=== PATIENT | male | born 1985 | race Caucasian/White ===

== ENCOUNTER 2021-06-12 20:48 | Emergency (ER) | payer OTHER ==
[~2021-06-12] VITALS: Ht 182.9 cm; Wt 74.8 kg
--- NOTE | 2021-06-12 21:03 | NUR ---
PT CALLED FOR TRIAGE, NOT IN WAITING ROOM.
[2021-06-12 21:37] VITALS: BP 141/78
[2021-06-12] MEDS ORDERED: CEPH500T PO (21:51)
[2021-06-12] MEDS ORDERED: SULF1TAB48 PO (21:51)
[2021-06-12] MEDS ORDERED: SULFAMETH/TRIMETH 800/160 MG 1 UDTAB TABLET ONE (21:55)
[2021-06-12] MEDS ORDERED: CEPHALEXIN MONOHYDRATE 500 MG CAPSULE PO ONE (21:55)
[2021-06-12] MEDS: CEPHALEXIN MONOHYDRATE 500 MG CAPSULE PO ONE (22:01)
[2021-06-12] MEDS: SULFAMETH/TRIMETH 800/160 MG 1 UDTAB TABLET PO ONE (22:01)
== END 2021-06-12 22:02 | disposition home or self-care (01) ==
LOC: ER 20:57
DX: L03.116 Cellulitis of left lower limb (principal); L03.115 Cellulitis of right lower limb; L03.114 Cellulitis of left upper limb; L03.113 Cellulitis of right upper limb; Z79.899 Other long term (current) drug therapy

== ENCOUNTER 2021-12-27 20:54 | Emergency (ER) | payer OTHER ==
[~2021-12-27] VITALS: Ht 182.9 cm; Wt 74.8 kg
[~2021-12-27 20:54] MED LIST: CEPH500T PO; SULF1TAB48 PO
[2021-12-27 21:30] VITALS: BP 144/75
--- NOTE | 2021-12-27 23:03 | NUR ---
OPERATIONS TECHNICIAN AT PT'S BEDSIDE
[2021-12-27] MEDS ORDERED: CLIN300C12 PO (23:07)
--- NOTE | 2021-12-27 23:45 | NUR ---
Patient does not wish to proceed with medical care recommended by Dr. WELCH. Patient given information related to possible complications, up to and including , which could occur as a result of leaving the hospital at this time. Patient verbalizes understanding of risks involved due to leaving against medical advice. Patient has signed AMA form.
== END 2021-12-27 23:30 | disposition left against medical advice (07) ==
LOC: ER 21:30
DX: L03.114 Cellulitis of left upper limb (principal)

== ENCOUNTER 2022-01-09 10:16 | Emergency (ER) | payer SELFPAY ==
[~2022-01-09] VITALS: Ht 182.9 cm; Wt 83.9 kg
[~2022-01-09 10:16] MED LIST changes: +CLIN300C12 PO
--- NOTE | 2022-01-09 10:30 | NUR ---
[facility], by stander called 911; he was [place] while the city was trying to clear and clean the area; + confuse but pleasant. Denies pain. In room air and denies SOB. Respiration regular and unlabored. Will continue to monitor the patient.
[2022-01-09 11:02] LABS: BASOPHILS % (AUTO) 0.2 % (0.0-2.0); HEMATOCRIT 44 % (39-51); HEMOGLOBIN 14.1 g/dL (13.5-17.5); LYMPHOCYTES # (AUTO) 0.6 K/uL (0.8-4.8); LYMPHOCYTES % (AUTO) 5.1 % (20.0-44.0); MEAN CORPUSCULAR HGB CONC 33 g/dl (31.0-36.0); MEAN CORPUSCULAR VOLUME 84 fL (80-96); MONOCYTES # (AUTO) 0.4 K/uL (0.1-1.30); MONOCYTES % (AUTO) 3.3 % (2.0-12.0); NEUTROPHILS # (AUTO) 11.5 K/uL (1.8-8.9); NEUTROPHILS % (AUTO) 91.4 % (43.0-81.0); PLATELET COUNT (AUTO) 469 K/uL (150-450); RED BLOOD CELL COUNT(AUTO) 5.16 MIL/uL (4.5-6.0); WHITE BLOOD COUNT (AUTO) 12.5 K/uL (4.3-11.0)
[2022-01-09 11:42] LABS: ALANINE AMINOTRANSFERASE 25 U/L (12-78); ALBUMIN 3.5 g/dL (3.4-5.0); ALCOHOL, BLOOD < 3 mg/dL (0-0); ALKALINE PHOSPHATASE 91 U/L (46-116); ASPARTATE AMINOTRANSFERASE 21 U/L (15-37); BILIRUBIN,DIRECT 0.1 mg/dL (0.0-0.2); BILIRUBIN,TOTAL 0.4 mg/dL (0.2-1.0); CREATININE 1.1 mg/dL (0.6-1.3); GLUCOSE 138 mg/dL (74-106); TOTAL PROTEIN, SERUM 8.6 g/dL (6.4-8.2); UREA NITROGEN, BLOOD 26 mg/dL (7-18)
[2022-01-09 11:56] LABS: ACETAMINOPHEN 0 ug/ml (10-30)
[2022-01-09 12:21] LABS: CARBON DIOXIDE 21 mmol/L (21-32); CHLORIDE 102 mmol/L (98-107); POTASSIUM 4.1 mmol/L (3.5-5.1); SODIUM SERUM 137 mmol/L (136-145)
--- NOTE | 2022-01-09 13:41 | NUR ---
URINE COLLECTED AND SENT TO THE LAB
[2022-01-09 14:01] LABS: BILIRUBIN,URINE SMALL (NEGATIVE); COLOR,URINE YELLOW (YELLOW); LEUKOCYTE ESTERASE ,URINE NEGATIVE (NEGATIVE); NITRITE, URINE NEGATIVE (NEGATIVE); PH,URINE 5.5 (5.0-8.0); PROTEIN,URINE TRACE mg/dl (NEGATIVE); UGLUCOSE NEGATIVE (NEGATIVE); UROBILINOGEN,URINE 0.2 EU/dL (0.2)
[2022-01-09 14:21] LABS: BACTERIA,URINE None seen /HPF (None Seen); RBC,URINE 0-2 /HPF (0-2); SQUAMOUS EPITHELIAL CELL,UR None Seen /HPF (None Seen); WBC,URINE 0-2 /HPF (0-3)
[2022-01-09 14:22] LABS: SPERM,URINE Present /HPF (None Seen)
[2022-01-09] MEDS ORDERED: NALO4SPR BNOSTRILS (14:48)
--- NOTE | 2022-01-09 16:04 | NUR ---
Patient given written and verbal discharge instructions. Patient verbalizes understanding of instructions. Patient is ambulatory with steady gait. Refuses offer of long-term placement. Patient given list of available shelters in surrounding area.
[2022-01-09 16:05] VITALS: BP 131/84
[2022-01-10] MEDS ORDERED: NALO4SPR BNOSTRILS (17:09)
== END 2022-01-09 16:06 | disposition home or self-care (01) ==
LOC: ER 10:34 → MERGE 10:34 → ER 16:06
DX: F11.10 Opioid abuse, uncomplicated (principal); Z59.02 Unsheltered homelessness; F19.10 Other psychoactive substance abuse, uncomplicated; Z20.822 Contact with and (suspected) exposure to COVID-19; L98.499 Non-pressure chronic ulcer of skin of other sites with unspecified severity
CPT/HCPCS: 36415; 80048; 80076; 80143; 80307; 80320; 81001; 85025; 87426; 99283; C9803; G0480

== ENCOUNTER 2022-01-10 00:26 | Emergency (ER) | payer OTHER ==
[~2022-01-10] VITALS: Ht 172.7 cm; Wt 79.4 kg
[~2022-01-10 00:26] MED LIST changes: +NALO4SPR BNOSTRILS
[2022-01-10 00:38] VITALS: BP 144/87
--- NOTE | 2022-01-10 01:50 | NUR ---
Patient eloped from facility. ER MD notified.
[2022-01-10] MEDS ORDERED: NALO4SPR BNOSTRILS (17:09)
== END 2022-01-10 02:25 | disposition left against medical advice (07) ==
LOC: ER 00:27
DX: Z53.21 Procedure and treatment not carried out due to patient leaving prior to being seen by health care provider (principal); F11.23 Opioid dependence with withdrawal

== ENCOUNTER 2022-01-10 11:19 | Emergency (ER) | payer OTHER ==
[~2022-01-10] VITALS: Ht 170.2 cm; Wt 79.4 kg
--- NOTE | 2022-01-10 11:19 | NUR ---
PT [address] C[address]O [place] USED. PT UNCOOPERATIVE, NOT IN RESPIRATORY DISTRESS, HOOKED TO V/S MONITOR, KEPT RESTED AND COMFORTABLE. WILL CONTINUE TO MONITOR.
--- NOTE | 2022-01-10 11:47 | NUR ---
PT SEEN AND EXAMINED BY .
--- NOTE | 2022-01-10 12:00 | NUR ---
REGINO KAUR [phone] FATHER.
--- NOTE | 2022-01-10 12:31 | NUR ---
UNABLE TO PROVIDE URINE AT THIS TIME
[2022-01-10 13:01] LABS: BASOPHILS % (AUTO) 0.2 % (0.0-2.0); HEMATOCRIT 48 % (39-51); HEMOGLOBIN 15.9 g/dL (13.5-17.5); LYMPHOCYTES # (AUTO) 1.2 K/uL (0.8-4.8); MEAN CORPUSCULAR HGB CONC 33 g/dl (31.0-36.0); MEAN CORPUSCULAR VOLUME 84 fL (80-96); MONOCYTES # (AUTO) 0.7 K/uL (0.1-1.30); MONOCYTES % (AUTO) 6.2 % (2.0-12.0); NEUTROPHILS # (AUTO) 9.7 K/uL (1.8-8.9); NEUTROPHILS % (AUTO) 83.6 % (43.0-81.0); PLATELET COUNT (AUTO) 483 K/uL (150-450); RED BLOOD CELL COUNT(AUTO) 5.78 MIL/uL (4.5-6.0); WHITE BLOOD COUNT (AUTO) 11.7 K/uL (4.3-11.0)
[2022-01-10 13:44] LABS: ALANINE AMINOTRANSFERASE 28 U/L (12-78); ALBUMIN 3.9 g/dL (3.4-5.0); ALCOHOL, BLOOD < 3 mg/dL (0-0); ALKALINE PHOSPHATASE 91 U/L (46-116); ASPARTATE AMINOTRANSFERASE 33 U/L (15-37); BILIRUBIN,DIRECT 0.1 mg/dL (0.0-0.2); BILIRUBIN,TOTAL 0.6 mg/dL (0.2-1.0); CREATININE 1.1 mg/dL (0.6-1.3); GLUCOSE 111 mg/dL (74-106); TOTAL PROTEIN, SERUM 9.8 g/dL (6.4-8.2); UREA NITROGEN, BLOOD 24 mg/dL (7-18)
[2022-01-10 13:46] LABS: ACETAMINOPHEN 0 ug/ml (10-30)
[2022-01-10 14:24] LABS: CARBON DIOXIDE 29 mmol/L (21-32); CHLORIDE 98 mmol/L (98-107); POTASSIUM 4.1 mmol/L (3.5-5.1); SODIUM SERUM 134 mmol/L (136-145)
[2022-01-10] MEDS ORDERED: ONDANSETRON 4 MG TAB.RAPDIS SL ONE (15:30)
[2022-01-10] MEDS ORDERED: BUPRENORPHINE HCL 2 MG TAB.SUBL SL ONE ×3 (15:30→15:34)
[2022-01-10] MEDS ORDERED: ONDANSETRON 4 MG TAB.RAPDIS ONE (15:34)
[2022-01-10] MEDS ORDERED: NALO4SPR BNOSTRILS (17:09)
--- NOTE | 2022-01-10 17:25 | NUR ---
Patient discharged in custody in stable condition. Written and verbal after care instructions given. Patient verbalizes understanding of instruction.
[2022-01-10 17:26] VITALS: BP 128/68
--- NOTE | 2022-01-12 10:42 | NUR ---
SW received consult for opiate abuse/withdraw. Pt. has departed from hospital over the weekend, SW was not able to see pt.
== END 2022-01-10 17:27 ==
LOC: ER 11:21
DX: R41.82 Altered mental status, unspecified (principal); F11.10 Opioid abuse, uncomplicated; Z59.00 Homelessness unspecified
CPT/HCPCS: 36415; 80048; 80076; 80143; 80320; 85025; 99283; Q0162; G0480